=== PATIENT | male | born 1980 | race Two or more races ===

== ENCOUNTER 2017-06-04 20:40 | Emergency (ER) | payer OTHER ==
[~2017-06-04] VITALS: Ht 180.3 cm; Wt 77.2 kg
[~2017-06-04 20:40] MED LIST: AMOXIL875 MG PO; ARANESP100 MCG/0. IV; CALCIUM CARBON500 M2 PO; DIALYSIS; ENULOSE10 GM/151 PO; FERRIC CITRATE210 MG PO; HEPARIN; KLONOPIN0.5 MG; MIDODRINE HCL10 M1 PO; MIDODRINE HCL5 M1 PO; NO MEDICATIONS; OMEPRAZOLE40 M2 PO; PERCOCET 5/3251 TAB PO; PREDNISOLO15 MG/5 ML PO; PREDNISONE10 M1 PO; TYLENOL EXTRA500 M1 PO; VITAMIN D250000 UNI1 PO; XIFAXAN550 M1 PO
[2017-06-04 22:42] LABS: BASO % 0.1 % (0-2); EOS % 0.1 % (0-7); HCT-HEMATOCRIT 29.3 % (36.0-53.5); HGB-HEMOGLOBIN 10.1 gm/dl (13.5-17.0); IMMATURE GRANULOCYTES ABSOLUTE 0.19 tho/cmm (0-0.03); IMMATURE GRANULOCYTES PERCENT 0.8 % (0-0.3); LYMPH % 2.7 % (20-45); LYMPH ABSOLUTE COUNT 0.7 tho/cmm (0.8-4.5); MCH (MEAN CORPUSCULAR HGB) 34.2 pg (28.0-32.0); MCHC MEAN CORPUSCULAR HGB CONC 34.5 % (32.0-36.0); MCV (MEAN CELL VOLUME) 99.3 fl (82.0-96.0); MEAN PLATELET VOLUME 9.9 cmc (9.4-12.4); MONO % 5.1 % (0-12); MONOCYTE ABSOLUTE COUNT 1.3 tho/cmm (0.0-1.2); NEUTROPHIL ABSOLUTE COUNT 23.1 tho/cmm (1.6-8.0); NEUTROPHIL-AUTOMATED 23.1 tho/cmm (1.6-8.0); NEUTROPHILS % 91.2 % (40-80); RED BLOOD COUNT 2.95 mil/cmm (4.40-5.70); RED CELL DISTRIBUTION WIDTH 21.9 % (12.4-16.4); WHITE BLOOD COUNT 25.2 tho/cmm (4.0-10.0)
[2017-06-04 22:44] LABS: INR 1.8 INR (0.9-1.1); PROTHROMBIN TIME 21.6 SECONDS (9.0-13.6)
[2017-06-04 23:03] LABS: ALB/GLOB RATIO 0.3 (0.8-2.0); ALBUMIN 1.6 g/dl (3.5-5.0); ALKALINE PHOSPHATASE 283 U/L (33-138); ALT/SGPT 109 U/L (12-78); ANION GAP 10 mmol/L (0-20); AST/SGOT 90 U/L (10-40); BLOOD UREA NITROGEN 33 mg/dl (6-24); CALCIUM 7.2 mg/dl (8.5-10.5); CARBON DIOXIDE-VENOUS 27 mmol/L (22-32); CHLORIDE 100 mmol/l (96-110); CREATININE 3.37 mg/dl (0.60-1.30); GLUCOSE 106 mg/dL (70-110); LIPASE 319 U/L (73-393); POTASSIUM 3.7 mmol/L (3.7-5.1); SODIUM 133 mmol/L (135-145); eGFR VALUE FOR BLACK 25 mL/Min
[2017-06-04 23:10] LABS: BILIRUBIN,INDIRECT 4.9 mg/dL (0.0-1.0)
[2017-06-04 23:15] LABS: BILIRUBIN,DIRECT 22.9 mg/dl (0.0-0.3); BILIRUBIN,TOTAL 27.8 mg/dl (0.0-1.5)
[2017-06-04 23:18] LABS: PLATELET COUNT 87 tho/cmm (150-450)
== END 2017-06-04 23:58 ==
LOC: EDMED 20:40
PROVIDERS: Emergency Medicine
DX: R17 Unspecified jaundice (principal); R06.02 Shortness of breath; R53.1 Weakness; N18.6 End stage renal disease; Z99.2 Dependence on renal dialysis
CPT/HCPCS: J2405